=== PATIENT | female | born 1950 | race Caucasian/White ===

== ENCOUNTER → 2016-11-11 | Outpatient (CLI) | payer OTHER ==
[~2016-11-11] MED LIST: ASPEC81 PO; ASPI81TA28 PO; ATOR-24 PO; B-COCAP2 PO; CARV3.122 PO; CHOL1TAB42 PO; CHOLTAB3 PO; CRG3125 PO; LEVO1TAB34 PO; LPT40 PO; LSN5 PO; OMEGCAP2 PO; PLAVIX75 PO; PLV75 PO
== END | disposition home or self-care (01) ==
LOC: C.LABSPEC 14:42
PROVIDERS: ATTEND Family Medicine
DX: Z12.11 Encounter for screening for malignant neoplasm of colon (principal)

== ENCOUNTER → 2016-12-04 | Outpatient (CLI) | payer OTHER ==
[2016-12-04 09:44] LABS: BASO % 0.6 %; BASO ABS # 0.03 K/uL (0-0.2); COMPLETE YES; EOS % 2.7 %; HEMATOCRIT 39.9 % (37-47); LYMPH % 28.5 %; LYMPH ABS # 1.39 K/uL (1.2-3.4); MEAN CELL VOLUME 90.9 fL (80-100); MEAN CORPUSCULAR HEMOGLOBIN 30.3 pg (25-34); MEAN CORPUSCULAR HGB CONC 33.3 g/dl (32-36); MEAN PLATELET VOLUME 9.7 fL (7.4-10.4); MONO % 7.6 %; NEUT % 60.6 %; PLATELET COUNT 194 K/uL (130-400); RED BLOOD COUNT 4.39 M/uL (4.2-5.4); WHITE BLOOD COUNT 4.87 K/uL (4.8-10.8)
[2016-12-04 09:58] LABS: ALT/SGPT 32 U/L (12-78); AST/SGOT 15 U/L (15-37); BLOOD UREA NITROGEN 18 mg/dl (7-18); BUN/CREATININE RATIO 22.5 (10-20); CALCIUM 8.6 mg/dl (8.5-10.1); CARBON DIOXIDE 27 mmol/L (21-32); CHLORIDE 107 mmol/L (98-107); CHOLESTEROL 147 mg/dl (0-200); GLUCOSE 92 mg/dl (70-99); POTASSIUM 3.8 mmol/L (3.5-5.1); SODIUM 142 mmol/L (136-145)
[2016-12-04 10:09] LABS: ALB/GLOB RATIO 1.2 (0.9-2); ALKALINE PHOSPHATASE 50 U/L (45-117); CHOLESTEROL/HDL RATIO 1.7; HDL CHOLESTEROL 85 mg/dl; LDL CHOLESTEROL CALCULATED 53 mg/dl; TRIGLYCERIDES 47 mg/dl (0-150); VERY LOW DENSITY LIPOPROT CALC 9 mg/dl
== END | disposition home or self-care (01) ==
LOC: C.LAB1850 08:23
PROVIDERS: ATTEND Family Medicine
DX: E78.00 Pure hypercholesterolemia, unspecified (principal); E55.9 Vitamin D deficiency, unspecified; I25.10 Atherosclerotic heart disease of native coronary artery without angina pectoris; G37.9 Demyelinating disease of central nervous system, unspecified

== ENCOUNTER → 2016-12-18 | Outpatient (CLI) | payer OTHER ==
--- NOTE | 2016-12-18 12:39 | MAMMOGRAPHY REPORT ---
BILATERAL DIGITAL SCREENING MAMMOGRAM WITH CAD: 12/18/2016 TECHNIQUE: Current study was also evaluated with a Computer Aided Detection (CAD) system. Bilatera l CC and MLO views were obtained. COMPARISON: Comparison is made to exams dated: 03/16/2014 mammogram, 03/12/2012 mammogram - [facility], and 07/04/2009. BREAST COMPOSITION: There are scattered areas of fibroglandular density in both breasts. FINDINGS: No suspicious masses, calcifications, or areas of architectural distortion are noted in e ither breast. There has been no significant interval change compared to prior exams. IMPRESSION: ACR BI-RADS CATEGORY 1: NEGATIVE There is no mammographic evidence of malignancy. A 1 year screening mammogram is recommended. The p atient will receive written notification of the results. Approximately 10% of breast cancers are not detected with mammography. A negative mammographic repor t should not delay biopsy if a clinically suggestive mass is present. Keya Schaefer M.D. ah/:12/18/2016 11:34:58 Loss Mitigation Specialist: Lavonne SMART(Inderjit)(Davide), [facility] letter sent: Normal 1/2 BI-RADS Code: ACR BI-RADS Category 1: Negative
== END | disposition home or self-care (01) ==
LOC: C.MAMM 11:20
PROVIDERS: ATTEND Obstetrics & Gynecology
DX: Z12.31 Encounter for screening mammogram for malignant neoplasm of breast (principal)

== ENCOUNTER 2017-01-08 15:10 | Observation (INO) | payer OTHER ==
[~2017-01-08] VITALS: Ht 165.1 cm; Wt 47.2 kg
[~2017-01-08 15:10] MED LIST changes: -ASPI81TA28 PO; -ATOR-24 PO; -CARV3.122 PO; -CHOL1TAB42 PO; -LEVO1TAB34 PO; -PLAVIX75 PO
[2017-01-08] MEDS ORDERED: ASPIRIN 324 MG CHEW PO STA (15:23)
--- NOTE | 2017-01-08 15:44 | DIAGNOSTIC IMAGING REPORT ---
CHEST ONE VIEW PORTABLE CLINICAL HISTORY: Dizziness. Chest pain. Tachycardia. COMPARISON STUDY: Chest radiograph May 09, 2016. FINDINGS: There is mild bilateral mid and lower lung airspace opacity. Cardiac size is normal. Mediastinal contours are normal. There is no evidence of pulmonary edema. The right heart border is slightly obscured. IMPRESSION: Mild bibasilar opacities with obscuration of the right heart border. The findings favor an infectious process. Radiographic follow-up to ensure resolution is recommended. Electronically signed by: Mustapha Rincon M.D. 01/08/2017 3:42 PM Dictated Date/Time: 01/08/2017 3:39 PM
[2017-01-08 16:09] LABS: BASO % 0.3 %; BASO ABS # 0.02 K/uL (0-0.2); COMPLETE YES; EOS % 0.4 %; HEMATOCRIT 36.3 % (37-47); IG% 0.1 %; LYMPH % 16.3 %; MEAN CELL VOLUME 88.5 fL (80-100); MEAN CORPUSCULAR HEMOGLOBIN 30.5 pg (25-34); MEAN CORPUSCULAR HGB CONC 34.4 g/dl (32-36); MEAN PLATELET VOLUME 9.4 fL (7.4-10.4); MONO % 10.6 %; NEUT % 72.3 %; PLATELET COUNT 174 K/uL (130-400); WHITE BLOOD COUNT 7.38 K/uL (4.8-10.8)
[2017-01-08 16:19] LABS: PROTHROMBIN TIME (PATIENT) 10.7 SECONDS (9.0-12.0)
[2017-01-08 16:30] LABS: BUN/CREATININE RATIO 22.2 (10-20); CALCIUM 9.1 mg/dl (8.5-10.1); CREATININE 0.82 mg/dl (0.60-1.20); POTASSIUM 4.1 mmol/L (3.5-5.1)
[2017-01-08] MEDS ORDERED: CARV3.122 PO (16:42)
[2017-01-08] MEDS ORDERED: ATOR-24 PO (16:42)
[2017-01-08] MEDS ORDERED: ASPI81TA28 PO (16:42)
[2017-01-08] MEDS ORDERED: PLAVIX75 PO (16:42)
[2017-01-08] MEDS ORDERED: CHOL1TAB42 PO (16:42)
[2017-01-08] MEDS ORDERED: LEVAQUIN 750MG / 150ML D5W IV STA (16:49)
[2017-01-08] MEDS ORDERED: SODIUM CHLORIDE 0.9% 500ML 500 ML IV STA (18:52)
[2017-01-08] MEDS ORDERED: NITROGLYCERIN 0.4 MG SL PER TAB CHARGE SL PRN (19:00)
[2017-01-08] MEDS ORDERED: ACETAMINOPHEN 325 MG TAB PO PRN (19:00)
[2017-01-08] MEDS ORDERED: ONDANSETRON INJ 2 MG/ML 2 ML VIAL IV PRN (19:00)
--- NOTE | 2017-01-08 19:09 | History and Physical ---
History & Physical Date & Time of Service: Jan 08, 2017 at 18:59 Chief Complaint: Dizzy, Chest Pain, Tachycardia Primary Care Physician: Cinda Rivera DO History of Present Illness Source: patient, family, hospital records This patient is a pleasant 66-year-old female that presents emergency department with complaints of right-sided chest discomfort that started last night prior to bed. The patient was able to sleep through the night. She woke up this morning feeling dizzy and that her heart was racing. She sat down on the couch for a few hours with no improvement. She took her vitals at home. Her pulse was greater than 100. She reports her systolic blood pressure being in the 90s, which is unusual for her. This lasted for much all day in addition to the right sided chest discomfort. She describes it as a squeezing sensation. It is worse with deep inspiration. She denies any actual shortness of breath. She has had a nonproductive cough, but this has been chronic for many months. She denies any sick contacts. No fever or chills. She denies any other associated symptoms such as sore throat or runny nose. The patient does have a significant cardiac history. She had a STEMI in April 2016 and underwent 1 stent placement in the RCA. She was told that she had other stenosis that is being treated medically. Past Medical/Surgical History Coronary artery disease status post STEMI in April 2016 Drug-eluting stent to the RCA April 2016 History of pneumonia in the past No reported surgeries Family History FHx: heart disease Mother-CVA and A. 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 that has ALS) Immunizations History of Influenza Vaccine: Yes History of Tetanus Vaccine?: Yes History of Pneumococcal: Yes History of Hepatitis B Vaccine: No Multi-Drug Resistant Organisms History of MDRO: No Allergies Coded Allergies: No Known Allergies (Unverified , 01/08/17) Home Medications Scheduled Aspirin (Aspirin Ec), 81 MG PO HS Atorvastatin (Lipitor), 40 MG PO HS Carvedilol (Coreg), 3.125 MG PO BID Cholecalciferol (Vitamin D), 5,000 UNITS PO HS Clopidogrel Bisulfate (Plavix), 1 TAB PO HS Review of Systems 10 system review performed and negative unless noted in HPI or below Physical Exam Vital Signs Date Time Temp Pulse Resp B/P Pulse Ox O2 Delivery O2 Flow Rate FiO2 01/08/17 17:11 94 18 142/78 96 Room Air 01/08/17 16:03 96 Room Air 01/08/17 16:03 94 18 129/81 97 Room Air 01/08/17 15:53 96 Room Air 01/08/17 15:32 81 01/08/17 15:15 37.2 81 18 144/83 96 Room Air General Appearance: no apparent distress Head: normocephalic Eyes: EOMI ENT: + pertinent finding (oral mucosa moist. No exudate noted.) Neck: no adenopathy, no JVD Respiratory/Chest: lungs clear Cardiovascular: regular rate, rhythm Abdomen/GI: normal bowel sounds, non tender, soft Extremities/Musculoskelatal: no calf tenderness, no pedal edema Neurologic/Psych: no motor/sensory deficits, oriented x 3 Skin: warm/dry Diagnostics Laboratory Results Results Past 24 Hours Test 01/08/17 15:55 01/08/17 15:56 Range/Units White Blood Count 7.38 4.8-10.8 K/uL Red Blood Count 4.10 4.2-5.4 M/uL Hemoglobin 12.5 12.0-16.0 g/dL Hematocrit 36.3 37-47 % Mean Corpuscular Volume 88.5 80-100 fL Mean Corpuscular Hemoglobin 30.5 25-34 pg Mean Corpuscular Hemoglobin Concent 34.4 32-36 g/dl Platelet Count 174 130-400 K/uL Mean Platelet Volume 9.4 7.4-10.4 fL Neutrophils (%) (Auto) 72.3 % Lymphocytes (%) (Auto) 16.3 % Monocytes (%) (Auto) 10.6 % Eosinophils (%) (Auto) 0.4 % Basophils (%) (Auto) 0.3 % Neutrophils # (Auto) 5.34 1.4-6.5 K/uL Lymphocytes # (Auto) 1.20 1.2-3.4 K/uL Monocytes # (Auto) 0.78 0.11-0.59 K/uL Eosinophils # (Auto) 0.03 0-0.5 K/uL Basophils # (Auto) 0.02 0-0.2 K/uL RDW Standard Deviation 41.9 36.4-46.3 fL RDW Coefficient of Variation 13.0 11.5-14.5 % Immature Granulocyte % (Auto) 0.1 % Immature Granulocyte # (Auto) 0.01 0.00-0.02 K/uL Prothrombin Time 10.7 9.0-12.0 SECONDS Prothromb Time International Ratio 1.0 0.9-1.1 Activated Partial Thromboplast Time 26.9 21.0-31.0 SECONDS Partial Thromboplastin Ratio 1.0 Sodium Level 141 136-145 mmol/L Potassium Level 4.1 3.5-5.1 mmol/L Chloride Level 107 98-107 mmol/L Carbon Dioxide Level 28 21-32 mmol/L Anion Gap 6.0 3-11 mmol/L Blood Urea Nitrogen 18 7-18 mg/dl Creatinine 0.82 0.60-1.20 mg/dl Est Creatinine Clear Calc Drug Dose 44.1 ml/min Estimated GFR () 85.2 Estimated GFR (Non- 73.5 BUN/Creatinine Ratio 22.2 10-20 Random Glucose 108 70-99 mg/dl Calcium Level 9.1 8.5-10.1 mg/dl Bedside Troponin I 0.000 0-0.045 ng/ml Microbiology Results 01/08/17 Blood Culture, Received Pending 01/08/17 Blood Culture, Received Pending Diagnostic Radiology Patient: JOSE GUADALUPE MARIE Address1: [address] [place] [address] Rec: [id number] Address2: Acct ID: [id number] [facility] Zip: [place] [address] Date: 1950 Sex: F Room/Bed: Ref Phy: Cinda Rivera DO SC: SHANEL Att Phy: Report #: [id number] Irena Phy: Cinda Rivera DO Test: CXR1P Admit Phy: Courier: TWILA Interpreting Phy: Mustapha Rincon MD Diagnosis: DIZZY, CHEST PAIN, TACHYCARDIA Ordering Phy: William Krause MD Service Date: 01/08/17 Admit Date: 01/08/17 MNE: [id number] CONF: DICTATED BY: Mustapha Rincon MD]] CC: William Krause M.D. Cinda Rivera DO Endcc: [~ rep ct add3]] CHEST ONE VIEW PORTABLE CLINICAL HISTORY: Dizziness. Chest pain. Tachycardia. COMPARISON STUDY: Chest radiograph May 09, 2016. FINDINGS: There is mild bilateral mid and lower lung airspace opacity. Cardiac size is normal. Mediastinal contours are normal. There is no evidence of pulmonary edema. The right heart border is slightly obscured. IMPRESSION: Mild bibasilar opacities with obscuration of the right heart border. The findings favor an infectious process. Radiographic follow-up to ensure resolution is recommended. Electronically signed by: Mustapha Rincon M.D. 01/08/2017 3:42 PM Dictated Date/Time: 01/08/2017 3:39 PM The status of this report is Signed. Draft = Not yet reviewed or approved by Radiologist. Signed = Reviewed and approved by Radiologist. <AttendingPhy></AttendingPhy> <FamilyPhy>Cinda Rivera DO</FamilyPhy> < PrimaryPhy>Cinda Rivera DO</PrimaryPhy> <UnitNumber>[id number]</UnitNumber > <VisitNumber>[id number]</VisitNumber> <PatientName>JOSE GUADALUPE MARIE</PatientName > <DateOfBirth>1950</DateOfBirth> <Location>[facility]</Location> <ServiceDate> 01/08/17</ServiceDate> <MNE>ESINDI</MNE> <OrderingPhy>William Krause MD</ OrderingPhy> <OrderingPhyMNE>f rep ord dr mayo</OrderingPhyMNE> <DictatingPhyMNE> f rep dict dr mayo</DictatingPhyMNE> <CCListMNE>f rep ct gael</CCListMNE> < AdmittingPhyMNE>f pt admit dr mayo</AdmittingPhyMNE> <AttendingPhyMNE>f pt attend dr mayo</AttendingPhyMNE> <ConsultingPhyMNE>f pt consult dr mayo</ConsultingPhyMNE> <FamilyPhyMNE>f pt fam dr mayo</FamilyPhyMNE> <OtherPhyMNE>f pt other dr mayo</OtherPhyMNE> < PrimaryPhyMNE>f pt prim care dr mayo</PrimaryPhyMNE> <ReferringPhyMNE>f pt referring dr mayo</ReferringPhyMNE> EKG Normal sinus rhythm with a rate of 88 bpm Incomplete right bundle branch block noted, which appears new T-wave inversions improved in the inferior leads Impression Assessment and Plan 66-year-old female presents emergency department with right-sided chest pressure , associated dizziness and subjective tachycardia. Significant history of coronary artery disease chest pain, dizziness-It sounds like the patient may have had a run of A. fib socially given her cardiac history. She also has a family history of A. fib. -observe in telemetry -follow cardiac enzymes every 8 hr x 2 -daily EKG -EKG with worsening pain -Check echo -Cardiology consult -NPO after midnight -continue medical management with ASA, Plavix, statin and beta [place] Questionable bibasilar infiltrates on chest [id number] picture is not consistent with an infectious process. She is afebrile. There is no leukocytosis. -CT of the chest for better evaluation -Hold off on antibiotics for now DVT prophylaxis -Teds, SCDs line-consider adding chemical means of anticoagulation if the patient is not discharged tomorrow CODE STATUS -LEVEL I FULL CODE Level of Care Telemetry Resuscitation Status FULL RESUSCITATION VTE Prophylaxis VTE Risk Assessment Done? Y/N: Yes Risk Level: Moderate Given or contraindicated: T.E.D. Stockings, SCD's Reviewed: Pt Seen/Exam by Me History Physician Media Services Coordinator Supervision Note: I interviewed and examined the patient. Discussed with CORY Sánchez and agree with findings and plan as documented in the note. Any exceptions or clarifications are listed here: Patient is a 66-year-old female who presents to the ER after having substernal chest tightness that started the night prior to admission but then moved over to the right midaxillary line and became more pleuritic in nature by the morning. She had persistent tachycardia and checked her pulse at home both with her blood pressure cuff and her home pulse oximeter and it was persistently at 105 for several hours. It was regular. She does have a history of SVT into the 140s noted during cardiac rehabilitation. She had lightheadedness associated with this and reports her blood pressure at one point was 85/45 at home. The right-sided chest pain is now resolved since being in the ER. She is not hypoxic. She received 1 dose of IV Levaquin in the ER, as well as IV fluids. She does report a mostly nonproductive cough she thinks for over a year. Every few weeks she'll cough up a dime-sized amount of white sputum. No fevers or chills at home. Her chest x-ray here was suggestive of possible bibasilar infiltrates. Her ECG and initial troponin were negative for ischemia. Since admission, her CT angiogram of the chest showed no pulmonary embolism, however it does confirm multifocal pneumonia of an atypical nature given her lack of significant symptoms. Vitals reviewed, persistently mildly tachycardic Anxious, NAD, AAO 3 Mild tachycardia, regular rhythm, no murmurs gallops or rubs Positive crackles left base, otherwise fairly clear throughout Abdomen soft nontender nondistended positive bowel sounds Extremities no edema, 2+ dorsalis pedis pulses Skin no rashes 66-year-old female with a history of CAD status post drug-eluting stent in April 2016, here with substernal chest tightness that and migrated to the right side of the chest became pleuritic in nature with nonproductive cough 1 year, found to have multifocal pneumonia on CT scan. Also with mild sinus tachycardia and hypotension at home. Pulmonary embolism ruled out. Her symptoms were similar to what brought her in for her IN last year. She will be admitted to rule out acute coronary syndrome and repeat her echocardiogram. She may need repeat stress test if her troponins are elevated or she has ECG changes. -Continue Levaquin, suspect atypical pneumonia-Will consult pulmonology for further expertise -Continue all other home cardiac meds including dual antiplatelet therapy -SCDs for DVT prophylaxis, however stays longer than 24 hours, would add on Lovenox or heparin subcutaneously -Patient is quite anxious to get home to take care of her who has ALS Documented By: Janneth Lewis
[2017-01-08] MEDS ORDERED: CLOPIDOGREL BISULFATE 75 MG TAB PO SCH (21:00)
[2017-01-08] MEDS ORDERED: ATORVASTATIN 20 MG TAB PO SCH (21:00)
[2017-01-08] MEDS ORDERED: ASPIRIN 81 MG ECTAB PO SCH (21:00)
[2017-01-08] MEDS ORDERED: OPTIRAY 320 IV PRN (21:15)
--- NOTE | 2017-01-08 21:20 | DIAGNOSTIC IMAGING REPORT ---
CHEST CTA for PULMONARY ARTERIES CT DOSE: 423.20 mGy.cm HISTORY: Chest pain dyspnea TECHNIQUE: Multiaxial CT images of the chest were performed following the intravenous administration of contrast to evaluate the pulmonary arteries. Maximal intensity projection images were also obtained. COMPARISON STUDY: None. FINDINGS: There is a normal caliber thoracic aorta with no evidence for dissection. There is no evidence for pulmonary embolus. No pleural effusions. No pneumothorax. The liver and spleen are unremarkable. Evaluation of the lung parenchyma demonstrates consolidative infiltrative changes anterior aspect of the right middle lobe and to lesser extent lingula. Patchy parenchymal infiltrative changes seen in the peripheral aspect of the right lower lobe as well as peripheral aspect of the left upper lobe. Minimal infiltrative changes seen over the superior segments of lower lobes bilaterally. Several small reactive nodes bilaterally. IMPRESSION: 1. Study is negative for pulmonary embolus. 2. Scattered parenchymal infiltrative changes with consolidative infiltrates involving the anterior aspects of the right middle lobe as well as lingula Electronically signed by: Wil Schafer M.D. 01/08/2017 9:18 PM Dictated Date/Time: 01/08/2017 9:15 PM
[2017-01-08 21:30] VITALS: BP 174/96; PULSE 101; TEMP 37.4; O2SAT 96; Ht 165.1 cm; Wt 47.2 kg
[2017-01-08] MEDS ORDERED: IV FLUIDS COMPLETED PRN (21:45)
[2017-01-08] MEDS: CARVEDILOL 3.125 MG TAB PO SCH (22:37)
--- NOTE | 2017-01-08 22:46 | EMERGENCY ROOM VISIT NOTE ---
History Report prepared by Karla: Yan Hernández Under the Supervision of: Dr. William Krause M.D. First contact with patient: 15:13 Chief Complaint: CHEST PAIN Stated Complaint: DIZZY, CHEST PAIN, TACHYCARDIA History of Present Illness The patient is a 66 year old female who presents to the Emergency Room with complaints of right sided chest pain starting last night. She describes it to be a tightness in her chest which is more noticeable on the right side. When she woke up this morning, she felt lightheaded. Her blood pressure about 6 hours ago was 95/43. She also felt her heart racing this morning. She currently feels dehydrated. She currently denies any pain or chest tightness. She intermittently has the chest tightness with deep breathing. She took a baby aspirin prior to arrival. She denies any recent illnesses. She reports a persistent cough for the past few days. She denies fever, shortness of breath, vomiting, diarrhea, pain/swelling in lower extremities, or any other complaints. She had a myocardial infarction in April 2016. At the time, she also had lightheadedness and a low blood pressure. Source of History: patient Onset: last night Position: chest (right) Symptom Intensity: No pain or tightness currently Quality: other (tightness) Modifying Factors (Relieving): other (baby aspirin) Associated Symptoms: + cough, No SOB, No diarrhea, No fevers, No vomiting Review of Systems See HPI for pertinent positives & negatives. A total of 10 systems reviewed and were otherwise negative. Past Medical & Surgical Medical Problems: (1) Chest pain (2) Hyperlipemia (3) STEMI (ST elevation myocardial infarction) Family History FHx: heart disease Social History Smoking Status: Never Smoker Drug Use: none Marital Status: Housing Status: lives with family Occupation Status: retired Current/Historical Medications Scheduled Aspirin (Aspirin Ec), 81 MG PO HS Atorvastatin (Lipitor), 40 MG PO HS Carvedilol (Coreg), 3.125 MG PO BID Cholecalciferol (Vitamin D), 5,000 UNITS PO HS Clopidogrel Bisulfate (Plavix), 1 TAB PO HS Allergies Coded Allergies: No Known Allergies (Unverified , 01/08/17) Physical Exam Vital Signs Date Time Temp Pulse Resp B/P Pulse Ox O2 Delivery O2 Flow Rate FiO2 01/08/17 17:11 94 18 142/78 96 Room Air 01/08/17 16:03 96 Room Air 01/08/17 16:03 94 18 129/81 97 Room Air 01/08/17 15:53 96 Room Air 01/08/17 15:32 81 01/08/17 15:15 37.2 81 18 144/83 96 Room Air Physical Exam Constitutional: Vital signs reviewed. Eyes: Pupils are equal round reactive to light. Conjunctiva are noninjected. ENT: Pharynx is clear without erythema or exudate. Mucous membranes are moist. Neck supple without meningeal signs. Respiratory: Clear to auscultation bilaterally. Breath sounds are equal bilaterally. Cardiovascular: Regular rate and rhythm. No rubs or gallops. GI: Soft, nondistended and nontender. Bowel sounds are present. Musculoskeletal: No peripheral edema. No lower extremity tenderness. Integumentary: No cyanosis. Neurological: The patient is awake and alert. No focal deficits. Psychiatric: Normal affect. Medical Decision & Procedures ER Provider Diagnostic Interpretation: X-ray results as stated below per interpretation by me and the radiologist: CHEST ONE VIEW PORTABLE CLINICAL HISTORY: Dizziness. Chest pain. Tachycardia. COMPARISON STUDY: Chest radiograph May 09, 2016. FINDINGS: There is mild bilateral mid and lower lung airspace opacity. Cardiac size is normal. Mediastinal contours are normal. There is no evidence of pulmonary edema. The right heart border is slightly obscured. IMPRESSION: Mild bibasilar opacities with obscuration of the right heart border. The findings favor an infectious process. Radiographic follow-up to ensure resolution is recommended. Electronically signed by: Mustapha Rnicon M.D. 01/08/2017 3:42 PM Dictated Date/Time: 01/08/2017 3:39 PM Laboratory Results 01/08/17 15:55 Red Blood Count 4.10, Mean Corpuscular Volume 88.5, Mean Corpuscular Hemoglobin 30.5, Mean Corpuscular Hemoglobin Concent 34.4, Mean Platelet Volume 9.4, Neutrophils (%) (Auto) 72.3, Lymphocytes (%) (Auto) 16.3, Monocytes (%) (Auto) 10.6, Eosinophils (%) (Auto) 0.4, Basophils (%) (Auto) 0.3, Neutrophils # (Auto ) 5.34, Lymphocytes # (Auto) 1.20, Monocytes # (Auto) 0.78, Eosinophils # (Auto ) 0.03, Basophils # (Auto) 0.02 01/08/17 15:55 Test 01/08/17 15:55 01/08/17 15:56 White Blood Count 7.38 K/uL (4.8-10.8) Red Blood Count 4.10 M/uL (4.2-5.4) Hemoglobin 12.5 g/dL (12.0-16.0) Hematocrit 36.3 % (37-47) Mean Corpuscular Volume 88.5 fL (80-100) Mean Corpuscular Hemoglobin 30.5 pg (25-34) Mean Corpuscular Hemoglobin Concent 34.4 g/dl (32-36) Platelet Count 174 K/uL (130-400) Mean Platelet Volume 9.4 fL (7.4-10.4) Neutrophils (%) (Auto) 72.3 % Lymphocytes (%) (Auto) 16.3 % Monocytes (%) (Auto) 10.6 % Eosinophils (%) (Auto) 0.4 % Basophils (%) (Auto) 0.3 % Neutrophils # (Auto) 5.34 K/uL (1.4-6.5) Lymphocytes # (Auto) 1.20 K/uL (1.2-3.4) Monocytes # (Auto) 0.78 K/uL (0.11-0.59) Eosinophils # (Auto) 0.03 K/uL (0-0.5) Basophils # (Auto) 0.02 K/uL (0-0.2) RDW Standard Deviation 41.9 fL (36.4-46.3) RDW Coefficient of Variation 13.0 % (11.5-14.5) Immature Granulocyte % (Auto) 0.1 % Immature Granulocyte # (Auto) 0.01 K/uL (0.00-0.02) Prothrombin Time 10.7 SECONDS (9.0-12.0) Prothromb Time International Ratio 1.0 (0.9-1.1) Activated Partial Thromboplast Time 26.9 SECONDS (21.0-31.0) Partial Thromboplastin Ratio 1.0 Anion Gap 6.0 mmol/L (3-11) Est Creatinine Clear Calc Drug Dose 44.1 ml/min Estimated GFR () 85.2 Estimated GFR (Non- 73.5 BUN/Creatinine Ratio 22.2 (10-20) Calcium Level 9.1 mg/dl (8.5-10.1) Bedside Troponin I 0.000 ng/ml (0-0.045) Laboratory results as reviewed by me. Medications Administered Medications (Trade) Dose Ordered Sig/Sudha Route Start Time Stop Time Status Last Admin Dose Admin Aspirin (Aspirin Chew) 324 mg NOW STAT PO 01/08/17 15:23 01/08/17 15:24 DC 01/08/17 15:58 324 MG Levofloxacin 750 mg 750 mg NOW STAT IV 01/08/17 16:49 01/08/17 16:50 DC 01/08/17 17:19 750 MG Sodium Chloride (Nss 500ml) 500 ml @ 999 mls/hr Q31M STAT IV 01/08/17 18:52 01/08/17 19:22 DC 01/08/17 18:52 999 MLS/HR ECG Indication: chest pain Rate (beats per minute): 88 Rhythm: normal sinus Findings: RBBB (incomplete), no ectopy ED Course 1513: The patient was evaluated in room A02. A complete history and physical exam was performed. 1523: Aspirin 324 mg PO 1636: I reevaluated the patient who denies any chest pain. She reports that she has had a mild cough recently but denies any fevers. She notes that Avelox works best for her. I discussed her test results. She will be evaluated for further management and care. 1647: I [facility] the [facility] She requested to start the patient on Levaquin. 1649: Levofloxacin 750 mg IV Medical Decision This is a 66-year-old female who presents with chest pain. Differential diagnosis includes unstable angina, KS, pneumonia, pleurisy, GERD. I did perform a limited focused review of portions of the patient's old chart on the electronic medical record. The patient was admitted in April 2016 for myocardial infarction and had a stent placed. I did evaluate the patient as noted above. The patient is presenting with intermittent chest tightness. She states that she was hypotensive and tachycardic at home similar to when she had her previous acute coronary syndrome. She has had a mild cough. She denies any fever. IV access was established. The patient was placed on a continuous monitor and storage bin tender. I did order and personally review the patient's 12-lead EKG and chest x-ray as described above. She does appear to have a infiltrate at the right side. I did order and review the patient's blood work as noted in the electronic medical record. Troponin is 0. I did order blood cultures. I did treat the patient with Levaquin IV. I did discuss the test results with the patient. Given her symptoms being very similar to when she had her previous stent I did recommend hospitalization for repeat cardiac enzymes. I did discuss case with the hospitalist and case fitter. Consults Time Called: [phone] Consulting Physician: [facility] Returned Call: [phone] I discussed the patient's [facility] She requested to start the patient on Levaquin. Impression Primary Impression: Precordial chest pain Additional Impression: Pneumonia involving right lung Scribe Attestation The scribe's documentation has been prepared under my direct and personally reviewed by me in its entirety. I confirm that the note above accurately reflects all work, treatment, procedures, and medical decision making performed by me. Departure Information Dispostion Being Evaluated By Hospitalist Referrals Cinda Rivera DO (PCP) Patient Instructions My [facility] Problem Qualifiers Additional Impression: Pneumonia involving right lung Pneumonia type: due to unspecified organism
[2017-01-08 23:48] VITALS: BP 146/81; PULSE 95; TEMP 37.3; O2SAT 98
[2017-01-09] VITALS (7 sets, daily range): BP systolic 108–114; BP diastolic 71–72; PULSE 78–105; TEMP 37.1–37.4; O2SAT 95–98
[2017-01-09 01:59] LABS: CKMB/CK RATIO 1.2 (0-3.0)
[2017-01-09 09:09] LABS: BASO % 0.5 %; BASO ABS # 0.03 K/uL (0-0.2); COMPLETE YES; EOS % 0.6 %; HEMATOCRIT 36.6 % (37-47); LYMPH % 20.7 %; LYMPH ABS # 1.33 K/uL (1.2-3.4); MEAN CELL VOLUME 88.4 fL (80-100); MEAN CORPUSCULAR HEMOGLOBIN 30.7 pg (25-34); MEAN CORPUSCULAR HGB CONC 34.7 g/dl (32-36); MEAN PLATELET VOLUME 9.4 fL (7.4-10.4); MONO % 13.1 %; NEUT % 65.1 %; PLATELET COUNT 172 K/uL (130-400); RED BLOOD COUNT 4.14 M/uL (4.2-5.4); WHITE BLOOD COUNT 6.42 K/uL (4.8-10.8)
[2017-01-09] MEDS: CARVEDILOL 3.125 MG TAB PO SCH (09:23)
[2017-01-09 09:35] LABS: CALCIUM 8.9 mg/dl (8.5-10.1); CREATININE 0.76 mg/dl (0.60-1.20); POTASSIUM 3.9 mmol/L (3.5-5.1)
[2017-01-09 09:36] LABS: CKMB/CK RATIO 1.2 (0-3.0)
--- NOTE | 2017-01-09 10:13 | CARDIOLOGY CONSULTATION ---
DATE OF CONSULTATION: 01/09/2017 DATE OF CONSULTATION: 01/09/2017. REFERRING PHYSICIAN: Janneth Lewis. HISTORY OF PRESENT ILLNESS: Mrs. Rena Walden is a 66-year-old woman with a known history of coronary artery disease having suffered an acute myocardial infarction in April 2016. The patient states that approximately 2 days ago she began to experience symptoms of right-sided chest discomfort. This discomfort involved the right lateral port of her chest wall, was worse with deep inspiration and certain movements of the arm. The patient monitored these symptoms for 1 day but they became somewhat more severe over that period of time. Did not appear to be associated with substernal chest discomfort and she reports these symptoms being distinct from those experienced during myocardial infarction last summer. At the time of her myocardial infarction her symptoms are more substernal in nature, involved a pressure sensation with radiation to the left arm. She has not had similar symptoms recently. She has also been fairly active around the house and ascending stairs without chest discomfort. 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 She did perform cardiac rehab periodically and did not have inducible symptoms of chest discomfort or significant shortness of breath with exercise at that time. She denies significant breathing difficulty. She has not had any associated breathing difficulty over the past 2 days. She denies orthopnea or paroxysmal nocturnal dyspnea. Currently her chest pain is resolved. There did not appear in any specific intervention which relieved her symptoms. This appeared to resolve on its own once she reached the hospital. The patient was concerned yesterday because she felt like her heart rate was somewhat elevated. She also had some symptoms of dizziness and lightheadedness associated with blood pressures that were measured to be low at home. The patient has had episodes of rapid heartbeats in the past. She feels that perhaps every other week she will have a day with a rapid heartbeat. Her symptoms during these episodes vary from mild fatigue to dizziness. She has not suffered a syncopal episode. The episodes themselves have been very similar over the past 10 years and have not necessarily changed in character. The episode themselves generally resolved spontaneously without any particular intervention. At the time of this interview, the patient claims to be feeling well. She is not currently dizzy. She has not noticed any racing heartbeats at this time. PAST MEDICAL HISTORY: 1. Significant for the aforementioned myocardial infarction in April 2016. The patient had occlusion of the right coronary artery and underwent percutaneous intervention of this vessel. She was also noted to have some residual disease which was nonobstructive in the mid LAD, a compromised diagonal branch as well as a codominant distal left complex branch. Also appeared to be some residual disease in the distal right coronary artery, not amenable to intervention. 2. Preserved left ventricular systolic function. 3. Possible history of multiple sclerosis. 4. Hypercholesterolemia. 5. Osteoporosis. 6. Migraine headaches. 7. Aforementioned SVT. PAST SURGICAL HISTORY: Includes oral surgery. FAMILY HISTORY: Noncontributory. No history of premature coronary disease. 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 She is a lifelong nonsmoker and denies significant alcohol abuse. REVIEW OF SYSTEMS: Complete 10 system review of systems was performed and the pertinent positives noted in the history of present illness. The patient does have a nonproductive cough which is fairly chronic in nature, appears to predate her myocardial infarction and not change significantly after discontinuation of her WADE inhibitor. She denies any change in her eating habits. No nausea, no vomiting, no change in her bowel habits. She has not noticed any swelling in her lower extremities. She has not had any recent constitutional symptoms such as fevers or chills. PHYSICAL EXAMINATION: GENERAL: The patient does not appear in acute distress. She is a pleasant individual who is alert and oriented. Mood and affect appeared normal. She answered all questions appropriately. VITAL SIGNS: Include blood pressure of 108/71 with pulse of 78. HEAD, EYES, EARS, NOSE, AND THROAT: Her sclerae are anicteric. Pupils equal, reactive to light and accommodation. Extraocular movements were intact. NECK: Palpation of submandibular region did not reveal any significant lymphadenopathy. The carotids are palpable bilaterally. There are no bruits on auscultation. I cannot appreciate any jugular venous distention. Thyroid is not enlarged. LUNGS: Auscultation of both lung dwyer reveal them to be clear. I do not appreciate rales, wheezes or rhonchi. There is no expiratory wheezing. She had normal respiratory effort without use of accessory muscles. CARDIAC EXAMINATION: Revealed her to be in a regular rhythm with normal S1, normal S2. I do not appreciate any murmurs on exam. PMI was not markedly displaced on palpation. ABDOMEN: Soft, nontender. EXTREMITIES: Evaluation both wrists revealed radial pulses that were equal in intensity. There is no evidence of cyanosis or clubbing. Evaluation of her lower extremities did not reveal any significant peripheral edema. I did not appreciate any rashes on exam today. LABORATORY STUDIES: Included a white cell count of 7.3, hemoglobin was 12.5, platelet count was 174. Sodium is 141, potassium is 4.1, BUN was 18, creatinine was 0.82. Serial cardiac troponins were drawn and they were less than detectable limit. A CT scan was performed after chest x-ray in the Emergency Room which suggested the presence of some parenchymal infiltrates. A 12-lead EKG was also obtained which revealed the patient to be in a sinus rhythm without notable ischemic changes. I reviewed the patient's telemetry which also reveals what appears to be a sinus rhythm and sinus tachycardia. ASSESSMENT AND PLAN: 1. Atypical chest pain. The patient's symptoms are right sided in nature and pleuritic. They were extended in duration without elevation in cardiac biomarkers. These are also distinct from those symptoms experienced during her myocardial infarction. As such, I will call this noncardiac and not recommend any additional coronary evaluation at this time. She was noted to have residual disease in branch vessels but has no symptoms of angina currently even with activity. In the presence of preserved left ventricular systolic function, will continue medical therapy. 2. Tachycardia. The patient's EKG suggest only a sinus tachycardia. Review of her telemetry suggests some abrupt changes in rate, but no obvious change in T-wave morphology. This may be a very slow atrial arrhythmia. Review of her outpatient record does suggest more rapid SVT at times. During cardiac rehab she had a tracing which is consistent with and SVT, the mechanism of which is unclear. There is a suggestion that this was an atrial tachycardia as well but the rate was much higher. I think at this point she can continue on her current dose of beta austin and we can discuss additional options for treatment on an outpatient basis up to and including catheter based therapy. 3. Coronary artery disease. The patient is on a good regimen for secondary prevention to include atorvastatin and dual antiplatelet therapy. The patient is on beta blockade subsequent to her myocardial infarction and had been on WADE inhibitor. This was discontinued due to symptoms of hypotension.
--- NOTE | 2017-01-09 11:55 | ECHOCARDIOGRAM REPORT ---
*NOTICE TO RECEIVING [employer] This information is strictly Confidential and protected under [place] law. [place] law prohibits you from making any further disclosure of this information unless further disclosure is expressly permitted by the written consent of the person to whom it pertains or is authorized by law. A general authorization for the release of medical or other information is not sufficient for this purpose. Hospital accepts no responsibility if the information is made available to any other person, INCLUDING THE PATIENT. Interpretation Summary * Name: JOSE GUADALUPE MARIE Study Date: 01/09/2017 07:18 AM BP: 108/71 mmHg * Patient Location: C.2T\S\S240\S\2 HR: 96 * : 1950 (M/d/yyyy) Gender: Female Height: 64 in * Age: 66 yrs Ethnicity: CA Weight: 107 lb * Ordering Physician: Ratna Sánchez * Referring Physician: Self, Referred * Performed By: Susan Shaw RCS * * Reason For Study: CHEST PAIN * BSA: 1.5 m2 * -- Conclusions -- * There is mild asymmetric left ventricular hypertrophy. * Left ventricular systolic function is normal. * There is mild mitral regurgitation. * Right ventricular systolic pressure is normal. * Small, localized pericardial effusion without echo evidence of tamponade. * Overall unchanged (including effusion) when compared directly to an echocardiogram from 04/2016 Procedure Details * A complete two-dimensional transthoracic echocardiogram was performed (2D, M-mode, Doppler and color flow Doppler). Left Ventricle * The left ventricle is normal in size. * There is mild asymmetric left ventricular hypertrophy. * Ejection Fraction = 50-55%. * Left ventricular systolic function is normal. * There are regional wall motion abnormalities as specified. * Basal inferior akinesis with anuerysmal changes Right Ventricle * The right ventricle is grossly normal size. * The right ventricular systolic function is normal. Atria * The left atrial size is normal. * Right atrial size is normal. Mitral Valve * The mitral valve leaflets appear thickened, but open well. * There is mild mitral regurgitation. Tricuspid Valve * The tricuspid valve is not well visualized, but is grossly normal. * There is mild tricuspid regurgitation. * Right ventricular systolic pressure is normal. Aortic Valve * The aortic valve is normal in structure and function. * Calcified non-coronary cusp * No hemodynamically significant valvular aortic stenosis. * Trace aortic regurgitation. Great Vessels * The aortic root is normal size. Pericardium/Pleural * Small, localized pericardial effusion without echo evidence of tamponade. Great Vessels * Normal inferior vena cava size and collapsability with sniff indicates a normal right atrial pressure of 3 mmHg MMode 2D Measurements and Calculations IVSd 1.4 cm IVSs 1.4 cm LVIDd 3.4 cm LVIDs 2.5 cm LVPWd 1.1 cm LVPWs 1.4 cm IVS/LVPW 1.3 FS 25.9 % EDV(Teich) 47.5 ml ESV(Teich) 22.8 ml EF(Teich) 52.0 % EDV(cubed) 39.4 ml ESV(cubed) 16.1 ml EF(cubed) 59.2 % % IVS thick -4.99 % % LVPW thick 23.5 % LV mass(C)d 144.0 grams LV mass(C)dI 96.0 grams/m\S\2 LV mass(C)s 109.2 grams LV mass(C)sI 72.8 grams/m\S\2 SV(Teich) 24.7 ml SI(Teich) 16.5 ml/m\S\2 SV(cubed) 23.3 ml SI(cubed) 15.6 ml/m\S\2 Ao root diam 3.6 cm Ao root area 10.0 cm\S\2 ACS 1.5 cm LA dimension 3.0 cm LA/Ao 0.83 LVOT diam 1.8 cm LVOT area 2.5 cm\S\2 LVAd ap4 21.3 cm\S\2 LVLd ap4 6.5 cm EDV(MOD-sp4) 56.6 ml EDV(sp4-el) 58.8 ml LVAs ap4 11.1 cm\S\2 LVLs ap4 5.1 cm ESV(MOD-sp4) 23.7 ml ESV(sp4-el) 20.6 ml EF(MOD-sp4) 58.0 % EF(sp4-el) 64.9 % SV(MOD-sp4) 32.8 ml SI(MOD-sp4) 21.9 ml/m\S\2 SV(sp4-el) 38.2 ml SI(sp4-el) 25.5 ml/m\S\2 Doppler Measurements and Calculations MV E max masood 64.5 cm/sec MV A max masood 57.2 cm/sec MV E/A 1.1 MV P1/2t max masood 81.4 cm/sec MV P1/2t 74.2 msec MVA(P1/2t) 3.0 cm\S\2 MV dec slope 321.4 cm/sec\S\2 MV dec time 0.29 sec Ao V2 max 130.3 cm/sec Ao max PG 6.8 mmHg Ao max PG (full) 2.4 mmHg MICHAEL(V,A) 2.0 cm\S\2 MICHAEL(V,D) 2.0 cm\S\2 LV V1 max PG 4.4 mmHg LV V1 max 104.8 cm/sec PA V2 max 86.9 cm/sec PA max PG 3.0 mmHg TR max masood 206.8 cm/sec
--- NOTE | 2017-01-09 12:08 | PULMONARY CONSULTATION ---
DATE OF CONSULTATION: 01/09/2017 TIME: 10:35 a.m. REPORT OF CONSULTATION: The patient was seen in room 240, bed 2. She is a pleasant 66-year-old female who came to the Emergency Room because she was worried about having some chest pain. She noticed some squeezing of her chest and some discomfort on the right side. This began on the night of January 07. The pain she says was relatively mild. During the day on the , she noticed that her heart rates were higher than normal. She apparently has a blood pressure cuff and pulse oximeter and her heart rates were about 105, whereas they normally are about 80. Because of these concerns, she presented to the Emergency Room. She underwent an evaluation. Thus far, no cardiac problems have been found. However, she did have a CAT scan of the chest done. The CAT scan was done to rule out pulmonary embolic disease. There was no evidence of PE. However, she had multiple areas of infiltrates. These were mainly in the right middle lobe and the lingula. The infiltrates are patchy. There is at least 3 or 4 areas affected. She states she does not feel like she has pneumonia. She does have a chronic cough. This began approximately 9 months ago. It occurs daily. It is dry. She does not bring up any phlegm. Her cough at present does not seem any different than her usual. It just so happens that she had been on Zegerid for several years and she stopped it in the spring of 2015. Thus, the possibility exists that her chronic cough could be related to reflux. This had not occurred to her over the past many months. She indicated she has not actually spoken with her doctor about this cough either. She did have pneumonia diagnosed in 2006 and again in 2008 and both times she was treated as an outpatient. The patient has never smoked. She was never told of asthma, tuberculosis, emphysema, COPD or pleurisy. She is not short of breath. Her oxygen saturations have been normal. She is not noticing any heartburn or reflux symptoms, but she states that is the way it was previously. The patient has had no hemoptysis. She does not have a headache. She is not complaining of myalgias or arthralgias. She does complain of having some cramps in her legs bilaterally. This has been in the calf area. She denies having any vomiting. PAST SURGICAL HISTORY: 1. Left knee meniscus surgery. 2. Stent to the right coronary artery in 2016. PAST MEDICAL HISTORY: 1. Coronary artery disease with CA in April 2016. 2. SVT which had been discovered at cardiac rehab. 3. 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 The vocal cord paralysis ultimately resolved over the course of several months. FAMILY HISTORY: Mother age 83, CVA and she had atrial fib. Father age 88 with an CA. ALLERGIES: No known allergies. 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 MEDICATIONS: At home: 1. Aspirin 81 mg daily. 2. Lipitor 40 mg daily. 3. Coreg 3.125 mg b.i.d. 4. Vitamin D. 5. Plavix daily. REVIEW OF SYSTEMS: Negative except for the above-mentioned complaints. Ten systems reviewed. PHYSICAL EXAMINATION: GENERAL: The patient is a 66-year-old female who was cooperative, alert and oriented. She was in no distress. VITAL SIGNS: Current temperature is 37.1. Her maximum temperature has been 37.4. HEENT: Eye exam suggests cataract formation bilaterally. Nares were clear. Mouth exam was normal. NECK: Palpation of the neck reveals no lymph nodes or masses. CHEST: Normal expansion and development. HEART: Heart rate was 78 per minute. The rhythm is regular. Blood pressure 108/71. LUNGS: Lung dwyer were clear bilaterally. No wheezes, rales or rhonchi were heard. Oxygen saturation was 97%. ABDOMEN: Soft. Bowel sounds were normal. There was no tenderness to palpation, masses or organomegaly. EXTREMITIES: Showed no cyanosis, clubbing or edema. In addition to the CAT scan of the chest, the patient's chest x-ray showed a small infiltrate in the right lower lung field medially. This is probably actually in the right middle lobe, based upon CAT scan findings. CBC shows a white count of 6.42. Hemoglobin is 12.7. Platelets 172,000. Coags are normal. Electrolytes show sodium 141, potassium 3.9, chloride 109, bicarb 26. BUN is 18 with a creatinine of 0.76. Blood sugar was 102. CPK was normal. Troponin was negative x3. IMPRESSIONS: 1. Bilateral pneumonia -- community acquired. 2. Chronic cough, possibly secondary to #3. 3. Gastroesophageal reflux disease. COMMENTS AND RECOMMENDATIONS: The patient clinically seems to be stable from a pulmonary perspective. She does have patchy bilateral pneumonia. This could represent viral pneumonia versus atypical or even bacterial pneumonia. I think that is the least likely. She has responded in the past to Avelox. She is now on Levaquin, which would be very similar. I believe the Levaquin could be changed to oral. From a pulmonary perspective, she could be discharged when desired. She should have 7 days of Levaquin. A followup x-ray should be done for completeness. I would suggest that the patient be started on omeprazole as a trial to see if her cough resolves. I will order a mycoplasma titer and Legionella antigen for completeness. Her blood cultures are still pending. I would be surprised if they are positive. Thank you for asking me to assist in her care.
[2017-01-09] MEDS ORDERED: LEVO1TAB34 PO (15:53)
--- NOTE | 2017-01-09 15:54 | Discharge Instructions ---
Discharge Instructions Admission Admission Date: Jan 08, 2017 at 18:58 Admission Diagnosis: Chest Pain. Discharge Care Plan - Problem: Medical Problems: (1) Pneumonia involving right lung (2) Precordial chest pain Care Plan - Goal(s): Improve function Care Plan - Instructions: Activity Recommendations: no limitations Recommended Home Diet: Regular VTE Core Measure Inpt VTE Proph given/why not?: Rocky Giron, SCD's Laboratory Results Test Results: Lipid Panel Test 12/04/16 08:36 Range/Units Triglycerides Level 47 0-150 mg/dl Cholesterol Level 147 0-200 mg/dl HDL Cholesterol 85 mg/dl Cholesterol/HDL Ratio 1.7 LDL Cholesterol, Calculated 53 mg/dl Howie Euceda Recommendations: Call your doctor if: * Temperature above 101 degrees * Pain not relieved by pain medicine ordered * There is increased drainage or redness from any incision * You have any unanswered questions or concerns. Your Doctors Instructions noted above were prepared by provider Shereen Wright.
[2017-01-09] MEDS ORDERED: LEVOFLOXACIN / D5W 750 MG in PREMIXED IN D5W 150 ML IV SCH (18:00)
--- NOTE | 2017-01-09 20:21 | Discharge Summary ---
Discharge Summary Date of Service Jan 09, 2017. Discharge Summary Admission Date: Jan 08, 2017 at 18:58 Discharge Date: Jan 09, 2017 Discharge Disposition: Home Principal Diagnosis: Bilateral pneumonia -- community acquired. Problems/Secondary Diagnoses: Bilateral pneumonia -- community acquired. Sinus tachycardia PR in April 2016. The patient had occlusion of the RCA S/P stent Preserved left ventricular systolic function. Possible history of multiple sclerosis. Hypercholesterolemia. Osteoporosis. Migraine headaches. Aforementioned SVT. Immunizations: Have You Had Influenza Vaccine: Yes History of Tetanus Vaccine?: Yes History of Pneumococcal: Yes History of Hepatitis B Vaccine: No Medication Reconciliation New Medications: Levofloxacin (Levaquin) 500 Mg Tab 1 TAB PO DAILY for 7 Days, #7 TAB Continued Medications: Aspirin (Aspirin Ec) 81 Mg Tab 81 MG PO HS Atorvastatin (Lipitor) 40 Mg Tab 40 MG PO HS, TAB Carvedilol (Coreg) 3.125 Mg Tab 3.125 MG PO BID, TAB PT STATES "RARELY TAKE AM DOSE". Cholecalciferol (Vitamin D) 5,000 Unit Tab 5000 UNITS PO HS Clopidogrel Bisulfate (Plavix) 75 Mg Tab 1 TAB PO HS for 90 Days, TAB 3 Refills Referrals At Discharge Follow up Referrals: [facility] Referral - Within 1-2 Weeks with Huber Doran, DO Discharge Exam Review of Systems: Constitutional: No chills, No fatigue, No fever, No problem reported, No sweats, No weakness, No weight loss Eyes: No diplopia, No discharge, No eye pain, No problem reported, No redness, No worsening of vision ENT: No dental problems, No hearing loss, No nasal symptoms, No problem reported, No sore throat, No tinnitus, No trouble swallowing, No unusual epistaxis Respiratory: + cough, No dyspnea at rest, No dyspnea on exertion, No hemoptysis, No problem reported, No shortness of breath, No sputum, No wheezing Cardiovascular: No PND, No chest pain, No claudication, No edema, No orthopnea, No palpitations, No problem reported Abdomen: No GI bleeding, No constipation, No diarrhea, No nausea, No pain, No problem reported, No vomiting Musculoskeletal: No calf pain, No joint pain, No muscle pain, No problem reported, No swelling Genitourinary - Female: No dysmenorrhea, No dysuria, No hematuria, No menorrhagia, No metrorrhagia, No , No problem reported, No rash, No urinary frequency, No urinary incontinence, No urinary retention, No urinary urgency, No vaginal bleeding, No vaginal discharge, No vaginal itching, No vulvodynia Neurologic: No balance problems, No memory loss, No numbness/tingling, No paralysis, No problem reported, No vertigo, No weakness Psychiatric: No anhedonism, No anxiety, No depression symptoms, No insomnia , No problem reported, No substance abuse Endocrine: No excessive thirst, No excessive urination, No fatigue, No problem reported Hematologic / Lymphatic: No abnormal bleeding/bruising, No clotting problems , No night sweats, No problem reported, No swollen lymph nodes Integumentary: No bleeding, No color change, No itch, No new/changing skin lesions, No problem reported, No rash Physical Exam: General Appearance: no apparent distress Eyes: normal inspection, PERRL ENT: normal ENT inspection, hearing grossly normal, TMs normal Neck: supple Respiratory/Chest: chest non-tender, lungs clear, normal breath sounds, no respiratory distress Cardiovascular: regular rate, rhythm, no edema, no gallop, no JVD, no murmur , normal peripheral pulses Abdomen / GI: normal bowel sounds, non tender, soft, no organomegaly, no pulsatile mass, normal rectal exam, occult blood negative Extremities: normal inspection, no calf tenderness, normal capillary refill , no pedal edema, normal range of motion Neurologic/Psychiatric: merchandise planning manager II-XII nml as tested, no motor/sensory deficits , alert, normal mood/affect, normal reflexes, oriented x 3 Skin: normal color, warm/dry, no rash Hospital Course 66 years old female was sent to ED as her PCP noticed tachycardia low hundreds. work up in ED revealed multi lobar pneumonia that appeared atypical as she complained of prolonged dry cough. seen by charge attendant, who cleared her for discharge as her pain appeared atypical. recommended out patient follow up and possible Holter. currently she was kept on B [place]. Seen by pharmaceutical officer , Dr. Doran who recommended 10 days course of levofloxacin LABORATORY STUDIES: Included a white cell count of 7.3, hemoglobin was 12.5, platelet count was 174. Sodium is 141, potassium is 4.1, BUN was 18, creatinine was 0.82. Serial cardiac troponins were drawn and they were less than detectable limit. She was discharged on 10 days course of levofloxacin instructed to follow up with pharmaceutical officer in 4 weeks for follow up CXR Total Time Spent: Greater than 30 minutes This includes examination of the patient, discharge planning, medication reconciliation, and communication with other providers. Discharge Instructions Please refer to the electronic Patient Visit Report (Discharge Instructions) for additional information.
[2017-01-13 11:34] LABS: LEGIONELLA ANTIGEN NOT DETECTED (NOT DETECTED)
== END 2017-01-09 16:41 | disposition home or self-care (01) ==
LOC: ENRESERVDT → ENRESERVTM → C.EDB 15:12 → EEVIPCON 18:58 → C.2T 18:58 → C.MED 01-09 12:36
PROVIDERS: ADMIT Family Medicine; ATTEND Internal Medicine
DX: J18.9 Pneumonia, unspecified organism (principal); R00.0 Tachycardia, unspecified; E78.00 Pure hypercholesterolemia, unspecified; K21.9 Gastro-esophageal reflux disease without esophagitis; M81.0 Age-related osteoporosis without current pathological fracture; I25.10 Atherosclerotic heart disease of native coronary artery without angina pectoris; I25.2 Old myocardial infarction; Z79.82 Long term (current) use of aspirin; Z87.01 Personal history of pneumonia (recurrent); Z82.3 Family history of stroke; Z82.49 Family history of ischemic heart disease and other diseases of the circulatory system

== ENCOUNTER → 2017-03-04 | Outpatient (CLI) | payer OTHER ==
[~2017-03-04] MED LIST changes: -ASPEC81 PO; +ASPI81TA28 PO; +ATOR-24 PO; -B-COCAP2 PO; +CARV3.122 PO; +CHOL1TAB42 PO; -CHOLTAB3 PO; -CRG3125 PO; -LPT40 PO; -LSN5 PO; -OMEGCAP2 PO; +PLAVIX75 PO; -PLV75 PO
--- NOTE | 2017-03-04 14:33 | DIAGNOSTIC IMAGING REPORT ---
CT SCAN OF THE CHEST WITHOUT IV CONTRAST CLINICAL HISTORY: Follow-up pneumonia. COMPARISON STUDY: Chest CT scans dated 01/08/2017 and 02/23/2009. TECHNIQUE: CT scan of the thorax was performed from the thoracic inlet to the upper abdomen. Images are reviewed in the axial, sagittal, and coronal planes. IV contrast was not administered for this examination as per the referring clinician. CT DOSE: 228.37 mGy.cm FINDINGS: Thyroid: Imaged portions of the thyroid gland are normal in size and heterogeneous in attenuation. Thoracic aorta: There is mild atherosclerotic calcification of the thoracic aorta, which is normal in caliber and demonstrates standard 3-vessel arch anatomy. Heart: The heart is normal in size and there is trace pericardial effusion. The coronary arteries are densely calcified. Lungs and pleural spaces: There is biapical scarring. There is fibrotic change and mild bronchiectasis seen within the right middle lobe and lingula. Foci of nodular consolidative change are also seen at the right lung base as well as in the lingula. Numerous foci of tree-in-bud nodularity are present within the lower lobes. Foci of mucus pudding are seen within the lower lungs. Scattered calcified granulomas are observed. Subpleural reticulation is seen bilaterally. An accessory fissure is incidentally noted in the right lower lobe. The trachea and central airways are clear. Mediastinum: There are numerous mildly enlarged mediastinal lymph nodes. Precarinal nodes seen on images #129 and #137 measure up to 1.0 cm in short axis. Jennifer: Not well assessed without IV contrast. Axillae: There is no axillary lymphadenopathy. Upper abdomen: Partially visualized upper abdominal viscera is within normal limits. Skeletal structures: The skeletal structures are osteopenic. No lytic or blastic bony lesions are seen. IMPRESSION: 1. There are numerous foci of tree-in-bud nodularity seen throughout both lungs, as well as foci of nodular consolidative change and foci of scarring and bronchiectasis within the right middle lobe and lingula. Although these findings appear somewhat improved from 01/08/2017 overall, there are new foci of nodular consolidative change present as well. Similar findings were also seen on examinations dating back to 2008. The appearance is most typical for a chronic infectious/inflammatory process such as atypical mycobacterium. Clinical correlation will be required. A precautionary 3-6 month follow-up chest CT is recommended for reassessment. 2. There is no pleural effusion. 3. Mildly enlarged mediastinal lymph nodes are nonspecific an avulsive been present over multiple prior studies. Electronically signed by: Horacio Real M.D. 03/04/2017 2:32 PM Dictated Date/Time: 03/04/2017 1:55 PM
== END | disposition home or self-care (01) ==
LOC: C.CTS 13:43
PROVIDERS: ATTEND Internal Medicine Pulmonary Disease
DX: R91.8 Other nonspecific abnormal finding of lung field (principal)

== ENCOUNTER → 2017-09-29 | Outpatient (CLI) | payer OTHER ==
[~2017-09-29] MED LIST changes: +LEVO1TAB35 PO; +TPRSR/25 PO
--- NOTE | 2017-09-29 12:38 | DIAGNOSTIC IMAGING REPORT ---
CHEST 2 VIEWS ROUTINE HISTORY: Cough. COMPARISON: Chest 01/08/2017. FINDINGS: The heart is normal in size. The lungs remain hyperexpanded. No pleural effusions. No pneumothorax. Patchy airspace opacities within the right middle lobe and lingula this is massively change compared the prior studies. IMPRESSION: No significant change in the patchy airspace opacities within the right middle lobe and lingula. This favors a chronic pneumonitis and may represent mycobacterium avium intracellulare. Electronically signed by: Osmin Cevallos M.D. 09/29/2017 12:36 PM Dictated Date/Time: 09/29/2017 12:05 PM
== END | disposition home or self-care (01) ==
LOC: C.RAD1850 11:35
PROVIDERS: ATTEND Nurse Practitioner Family
DX: R05 Cough (principal)

== ENCOUNTER 2017-10-01 09:25 | Emergency (ER) | payer OTHER ==
[~2017-10-01] VITALS: Ht 162.6 cm; Wt 50.5 kg
[~2017-10-01 09:25] MED LIST changes: -LEVO1TAB35 PO; -TPRSR/25 PO
[2017-10-01 09:29] VITALS: Ht 162.6 cm; Wt 50.5 kg
[2017-10-01] MEDS ORDERED: OPTIRAY 320 IV PRN (10:00)
[2017-10-01] MEDS ORDERED: TPRSR/25 PO (10:05)
--- NOTE | 2017-10-01 10:12 | DIAGNOSTIC IMAGING REPORT ---
CHEST ONE VIEW PORTABLE HISTORY: Right-sided chest pain. Cough. COMPARISON: Chest 09/29/2017. FINDINGS: Slight progression of the patchy airspace opacities within the periphery the right mid to lower lung zone and within the base of the left lower lobe. No pneumothorax. No pleural fusions. The heart is normal in size. The right midlung zone density IMPRESSION: Slight progression of the right mid to lower lung zone and left lung base patchy airspace opacities. This suggests an acute on chronic pneumonitis. Electronically signed by: Osmin Cevallos M.D. 10/01/2017 10:11 AM Dictated Date/Time: 10/01/2017 10:09 AM
[2017-10-01 10:35] LABS: BASO % 0.1 %; BASO ABS # 0.01 K/uL (0-0.2); COMPLETE YES; IG% 0.3 %; LYMPH % 7.2 %; LYMPH ABS # 0.65 K/uL (1.2-3.4); MEAN CELL VOLUME 91.1 fL (80-100); MEAN CORPUSCULAR HEMOGLOBIN 31.3 pg (25-34); MEAN CORPUSCULAR HGB CONC 34.4 g/dl (32-36); MONO % 6.6 %; NEUT % 85.8 %; PLATELET COUNT 174 K/uL (130-400); RED BLOOD COUNT 4.28 M/uL (4.2-5.4); WHITE BLOOD COUNT 8.98 K/uL (4.8-10.8)
[2017-10-01 10:59] LABS: ALT/SGPT 53 U/L (12-78); BLOOD UREA NITROGEN 12 mg/dl (7-18); BUN/CREATININE RATIO 15.6 (10-20); CALCIUM 8.7 mg/dl (8.5-10.1); CARBON DIOXIDE 25 mmol/L (21-32); CHLORIDE 103 mmol/L (98-107); CREATININE 0.75 mg/dl (0.60-1.20); GLUCOSE 157 mg/dl (70-99); POTASSIUM 3.6 mmol/L (3.5-5.1); SODIUM 136 mmol/L (136-145)
[2017-10-01 11:04] LABS: ALKALINE PHOSPHATASE 121 U/L (45-117); AST/SGOT 24 U/L (15-37)
[2017-10-01] MEDS ORDERED: ONDANSETRON INJ 2 MG/ML 2 ML VIAL IV STA (11:18)
[2017-10-01] MEDS ORDERED: SODIUM CHLORIDE 0.9% 1000ML 1,000 ML IV STA (11:18)
--- NOTE | 2017-10-01 11:41 | DIAGNOSTIC IMAGING REPORT ---
CT ANGIOGRAM OF THE CHEST CLINICAL HISTORY: Right-sided pleuritic chest pain COMPARISON STUDY: Noncontrast chest CT dated 03/04/2017 , chest x-ray dated 10/01/2017 TECHNIQUE: Following the IV administration of 94 mL of Optiray-320, CT angiogram of the thorax was performed from the thoracic inlet to the lung bases utilizing the pulmonary embolus protocol. Images are reviewed in the axial, sagittal, and coronal planes. IV contrast was administered without complication. MIP imaging was performed. A dose lowering technique was utilized adhering to the principles of ALARA. CT DOSE: 257.88 mGycm FINDINGS: There is mild mediastinal lymphadenopathy. An index 3 tracheal lymph node measures 15 mm in short axis. There is a precarinal lymph node measuring 15 mm. There was no evidence of thoracic aortic dilatation. There were no pulmonary artery filling defects to indicate acute pulmonary embolism. No pleural effusions are visualized. There are persistent tree-in-bud opacities with thin the right upper lobe. There is persistent lingular bronchiectasis with associated airspace opacities. There is a progressive right middle lobe airspace opacity. There are new ill-defined moderately extensive nodular right lower lobe airspace opacities suspicious for acute pneumonia. IMPRESSION: 1. Persistent mediastinal lymphadenopathy 2. New ill-defined moderately extensive nodular right lower lobe airspace opacity suspicious for acute pneumonia. This is superimposed on chronic parenchymal abnormalities. In addition there is progressive consolidative changes within the right middle lobe. 3. Follow-up imaging subsequent to antibiotic therapy is recommended. Electronically signed by: Jony Benton M.D. 10/01/2017 11:40 AM Dictated Date/Time: 10/01/2017 11:33 AM
[2017-10-01] MEDS ORDERED: ACETAMINOPHEN 325 MG TAB ONE (11:44)
[2017-10-01] MEDS ORDERED: NURSING VERBAL MED ORDER ONE (11:45)
[2017-10-01] MEDS ORDERED: LEVO1TAB35 PO (12:06)
[2017-10-01] MEDS ORDERED: LEVOFLOXACIN 250 MG TAB PO ONE (12:15)
[2017-10-01 12:48] VITALS: BP 143/68; PULSE 96; TEMP 37.6; O2SAT 95
--- NOTE | 2017-10-01 16:02 | EMERGENCY ROOM VISIT NOTE ---
History Report prepared by Karla: William Bailey Under the Supervision of: Dr. Ralf Mena D.O. First contact with patient: 09:35 Chief Complaint: COUGH Stated Complaint: COUGH, TIGHTNESS UNDER RIBS RT SIDE,VERTIGO, REFE Nursing Triage Summary: patient c/o dry harsh cough since friday morning. patient went to PCP and had xray on friday. x -ray negative. patient c/o worsening cough and fever 101.4 yesterday and pain during deep inspiration. today patient states she had low grade fever. no tylenol or motrin. History of Present Illness The patient is a 67 year old female who presents to the Emergency Room with complaints of a worsening dry cough for 2 days. Patient adds that she has tightness on the lateral side of her right chest. She had a chest x-ray done by her PCP on the which showed chronic infiltrate with questionable microbacteria. PCP referred her to the ED this morning. Per patient, symptoms are improved with pressure on side of her chest and exacerbated when taking deep breaths. She states she felt nauseous 8 hours ago causing her to vomit. Patient adds that pain with deep breaths began at 3:30pm yesterday. She also states that her right knee began shaking violently 1 day ago. She denies sore throat, or runny nose. Pertinent medical history includes pleurisy, pneumonia "multiple times", and a cardiac stent. Patient denies any blood clots. Pt denies headache, change in vision, fever over 104, chest pain, shortness of breath, diarrhea, pain with urination, and melena. Patient has no history of COPD. She still has gallbladder and appendix. Patient has had no recent travels outside of country or contact with someone in the [facility]. Source of History: patient Onset: 2 days ago Quality: other (dry cough) Timing: worsening Modifying Factors (Worsening): breathing (deep) Modifying Factors (Relieving): other (Pressure on right side of chest) Associated Symptoms: + nausea, + vomiting, No fevers, No sorethroat, No back pain, No melena, No diarrhea, No urinary symptoms Review of Systems See HPI for pertinent positives & negatives. A total of 10 systems reviewed and were otherwise negative. Past Medical & Surgical Medical Problems: (1) Chest pain (2) Hyperlipemia (3) STEMI (ST elevation myocardial infarction) Family History FHx: heart disease Social History Smoking Status: Never Smoker Drug Use: none Marital Status: Housing Status: lives with family Occupation Status: retired Current/Historical Medications Scheduled Aspirin (Aspirin Ec), 81 MG PO HS Atorvastatin (Lipitor), 40 MG PO HS Cholecalciferol (Vitamin D), 5,000 UNITS PO HS Levofloxacin (Levaquin), 750 MG PO QD@08 Metoprolol Succinate (Metoprolol Succinate ER), 25 MG PO DAILY Allergies Coded Allergies: No Known Allergies (Unverified , 01/08/17) Physical Exam Vital Signs Date Time Temp Pulse Resp B/P (MAP) Pulse Ox O2 Delivery O2 Flow Rate FiO2 10/01/17 12:48 37.6 96 20 143/68 95 10/01/17 11:37 37.6 96 20 143/68 95 Room Air 10/01/17 10:06 37.0 109 20 149/85 96 Room Air 10/01/17 09:29 37.0 109 22 140/73 96 Room Air Physical Exam GENERAL: Sitting up in bed, alert, well appearing, well nourished, no distress, non-toxic EYE EXAM: normal conjunctiva. PERRL and EOM's intact. OROPHARYNX: no exudate, no erythema, lips, buccal mucosa, and tongue normal and mucous membranes are moist NECK: supple, no nuchal rigidity, no adenopathy, non-tender LUNGS: Clear to auscultation. Normal chest wall mechanics HEART: no murmurs, S1 normal and S2 normal ABDOMEN: abdomen soft, non-tender, normo-active bowel sounds, no masses, no rebound or guarding. BACK: Back is symmetrical on inspection and there is no deformity, no midline tenderness, no CVA tenderness. SKIN: no rashes and no bruising UPPER EXTREMITIES: Radial pulses are equal bilaterally. Upper extremities are grossly normal. LOWER EXTREMITIES: Calves equal bilaterally. No pitting edema. NEURO EXAM: Normal sensorium, cranial nerves II-XII intact, normal speech, no gross weakness of arms, no gross weakness of legs. Medical Decision & Procedures ER Provider Diagnostic Interpretation: Radiology results as stated below per my review and the radiologist's interpretation: CHEST ONE VIEW PORTABLE HISTORY: Right-sided chest pain. Cough. COMPARISON: Chest 09/29/2017. FINDINGS: Slight progression of the patchy airspace opacities within the periphery the right mid to lower lung zone and within the base of the left lower lobe. No pneumothorax. No pleural fusions. The heart is normal in size. The right midlung zone density IMPRESSION: Slight progression of the right mid to lower lung zone and left lung base patchy airspace opacities. This suggests an acute on chronic pneumonitis. Electronically signed by: Osmin Cevallos M.D. 10/01/2017 10:[address] ANGIOGRAM OF THE CHEST CLINICAL HISTORY: Right-sided pleuritic chest pain COMPARISON STUDY: Noncontrast chest CT dated 03/04/2017 , chest x-ray dated 10/01/2017 TECHNIQUE: Following the IV administration of 94 mL of Optiray-320, CT angiogram of the thorax was performed from the thoracic inlet to the lung bases utilizing the pulmonary embolus protocol. Images are reviewed in the axial, sagittal, and coronal planes. IV contrast was administered without complication. MIP imaging was performed. A dose lowering technique was utilized adhering to the principles of ALARA. CT DOSE: 257.88 mGycm FINDINGS: There is mild mediastinal lymphadenopathy. An index 3 tracheal lymph node measures 15 mm in short axis. There is a precarinal lymph node measuring 15 mm. There was no evidence of thoracic aortic dilatation. There were no pulmonary artery filling defects to indicate acute pulmonary embolism. No pleural effusions are visualized. There are persistent tree-in-bud opacities with thin the right upper lobe. There is persistent lingular bronchiectasis with associated airspace opacities. There is a progressive right middle lobe airspace opacity. There are new ill-defined moderately extensive nodular right lower lobe airspace opacities suspicious for acute pneumonia. IMPRESSION: 1. Persistent mediastinal lymphadenopathy 2. New ill-defined moderately extensive nodular right lower lobe airspace opacity suspicious for acute pneumonia. This is superimposed on chronic parenchymal abnormalities. In addition there is progressive consolidative changes within the right middle lobe. 3. Follow-up imaging subsequent to antibiotic therapy is recommended. Electronically signed by: Jony Benton M.D. 10/01/2017 11:40 AM Laboratory Results 10/01/17 10:20 Red Blood Count 4.28, Mean Corpuscular Volume 91.1, Mean Corpuscular Hemoglobin 31.3, Mean Corpuscular Hemoglobin Concent 34.4, Mean Platelet Volume 10.0, Neutrophils (%) (Auto) 85.8, Lymphocytes (%) (Auto) 7.2, Monocytes (%) (Auto) 6.6, Eosinophils (%) (Auto) 0.0, Basophils (%) (Auto) 0.1, Neutrophils # (Auto) 7.70, Lymphocytes # (Auto) 0.65, Monocytes # (Auto) 0.59, Eosinophils # (Auto) 0.00, Basophils # (Auto) 0.01 10/01/17 10:20 Test 10/01/17 10:20 White Blood Count 8.98 K/uL (4.8-10.8) Red Blood Count 4.28 M/uL (4.2-5.4) Hemoglobin 13.4 g/dL (12.0-16.0) Hematocrit 39.0 % (37-47) Mean Corpuscular Volume 91.1 fL (80-100) Mean Corpuscular Hemoglobin 31.3 pg (25-34) Mean Corpuscular Hemoglobin Concent 34.4 g/dl (32-36) Platelet Count 174 K/uL (130-400) Mean Platelet Volume 10.0 fL (7.4-10.4) Neutrophils (%) (Auto) 85.8 % Lymphocytes (%) (Auto) 7.2 % Monocytes (%) (Auto) 6.6 % Eosinophils (%) (Auto) 0.0 % Basophils (%) (Auto) 0.1 % Neutrophils # (Auto) 7.70 K/uL (1.4-6.5) Lymphocytes # (Auto) 0.65 K/uL (1.2-3.4) Monocytes # (Auto) 0.59 K/uL (0.11-0.59) Eosinophils # (Auto) 0.00 K/uL (0-0.5) Basophils # (Auto) 0.01 K/uL (0-0.2) RDW Standard Deviation 43.6 fL (36.4-46.3) RDW Coefficient of Variation 13.2 % (11.5-14.5) Immature Granulocyte % (Auto) 0.3 % Immature Granulocyte # (Auto) 0.03 K/uL (0.00-0.02) D-Dimer 780 ug/L FEU (0-500) Anion Gap 8.0 mmol/L (3-11) Est Creatinine Clear Calc Drug Dose 56.4 ml/min Estimated GFR () 94.3 Estimated GFR (Non- 81.3 BUN/Creatinine Ratio 15.6 (10-20) Calcium Level 8.7 mg/dl (8.5-10.1) Total Bilirubin 0.9 mg/dl (0.2-1) Direct Bilirubin 0.2 mg/dl (0-0.2) Aspartate Amino Transf (AST/SGOT) 24 U/L (15-37) Alanine Aminotransferase (ALT/SGPT) 53 U/L (12-78) Alkaline Phosphatase 121 U/L (45-117) Troponin I < 0.015 ng/ml (0-0.045) Total Protein 6.8 gm/dl (6.4-8.2) Albumin 3.4 gm/dl (3.4-5.0) Lipase 106 U/L (73-393) Laboratory results per my review. Medications Administered Medications (Trade) Dose Ordered Sig/Sudha Route Start Time Stop Time Status Last Admin Dose Admin Sodium Chloride 1,000 ml @ 999 mls/hr Q1H1M STAT IV 10/01/17 11:18 10/01/17 12:18 DC 10/01/17 11:34 999 MLS/HR Ondansetron HCl (Zofran Inj) 4 mg NOW STAT IV 10/01/17 11:18 10/01/17 11:19 DC 10/01/17 11:33 4 MG Miscellaneous Information (Nursing Verbal Med Order) 1 ea ONE ONCE N/A 10/01/17 11:45 10/01/17 11:46 DC 10/01/17 11:48 1 EA Acetaminophen (Tylenol Tab) 650 mg STK-MED ONCE .ROUTE 10/01/17 11:44 10/01/17 11:45 DC 10/01/17 11:48 650 MG Levofloxacin (Levaquin Tab) 750 mg NOW ONCE PO 10/01/17 12:15 10/01/17 12:16 DC 10/01/17 12:47 750 MG ECG Indication: chest pain Rate (beats per minute): 107 Rhythm: sinus tachycardia Findings: Q waves (Inferior), other (Incomplete right bundle) ED Course ED COURSE: Vital signs were reviewed and showed tachycardiac The patients medical record was reviewed The above diagnostic studies were performed and reviewed. ED treatments and interventions as stated above. 0936: The patient was evaluated in room B7. A complete history and physical examination was performed. 1000: Optiray 320 100ml IV 1118: Zofran Inj 4mg IV, Sodium Chloride 1000 ml @ 999 mls/hr IV 1144: Tylenol Tab 650mg route, Nursing Verbal Med Order 1ea 1155: I checked up on the patient and they are resting comfortably. 1215: Levaquin Tab 750mg PO 1221: Upon reevaluation, the patient is resting comfortably.I discussed my findings with the patient and she understands and agrees with the treatment plan. Based on the patients age, coexisting illnesses, exam and lab findings the decision to treat as an outpatient was made. The patient remained stable while under my care. The patient appeared well at the time of discharge. Medical Decision Differential diagnoses includes but is not limited to acute coronary syndrome, myocardial infarction, pericarditis, pulmonary embolus, aortic dissection, pneumonia, pneumothorax, musculoskeletal, shingles, esophageal. Patient is a 67-year-old female who presents to ER for cough associated with right-sided chest pain and nausea. She was referred in for further workup. Recent chest x-ray suggests a possible pneumonia. CBC all BMP, LFTs, bilirubin lipase is unremarkable. She is not tachycardic. She is not hypoxic. Afebrile. D-dimer was elevated. CT PE was performed and shows multifocal pneumonia. Patient was updated at bedside. She was feeling significantly better following fluids and antibiotics. Patient was discharged follow-up with PCP as an outpatient. Discussed with Pt concerning signs and symptoms to watch out for. Pt was instructed to follow up with their PCP and discussed with the patient their option to return to the ED at anytime for persistent or worsening symptoms. The appropriate anticipatory guidance and out-patient management, including indications for return to the emergency department, were explained at length to the patient and understood. Medication Reconcilliation Current Medication List: was personally reviewed by me Blood Pressure Screening Patient's blood pressure: Normal blood pressure Blood pressure disposition: Did not require urgent referral Impression Primary Impression: Pneumonia Scribe Attestation The scribe's documentation has been prepared under my direction and personally reviewed by me in its entirety. I confirm that the note above accurately reflects all work, treatment, procedures, and medical decision making performed by me. Departure Information Dispostion Home / Self-Care Prescriptions Levofloxacin (Levaquin) 750 Mg Tab 750 MG PO QD@08, #9 TAB Prov: Ralf Mena, DO 10/01/17 Referrals Neville Nance III, CRNP (PCP) Forms HOME CARE DOCUMENTATION FORM, IMPORTANT VISIT INFORMATION Patient Instructions My [facility], Pneumonia (Bacterial) - [facility] Additional Instructions Please follow up with your primary care doctor with in the next 24 hours. Any worsening of your symptoms, please return to the ED immediately. This includes any fevers greater than 100.4, worsening pain, chest pain, shortness breath, persistent nausea, vomiting, unable to eat or drink, or any other concerning signs or symptoms from your standpoint. You were given medications during this visit that will inhibit your ability to drive, operate machinery and work. Please do NOT drive, operate machinery, drink alcohol or work for the next 12hrs. Problem Qualifiers Primary Impression: Pneumonia Pneumonia type: due to unspecified organism Laterality: unspecified laterality Lung location: unspecified part of lung Qualified Codes: J18.9 - Pneumonia, unspecified organism
== END 2017-10-01 12:49 | disposition home or self-care (01) ==
LOC: C.EDB 09:27
DX: J18.9 Pneumonia, unspecified organism (principal); E78.5 Hyperlipidemia, unspecified; I25.2 Old myocardial infarction; Z87.01 Personal history of pneumonia (recurrent); Z98.61 Coronary angioplasty status; Z79.82 Long term (current) use of aspirin; Z79.899 Other long term (current) drug therapy

== ENCOUNTER → 2017-10-30 | Outpatient (CLI) | payer OTHER ==
[~2017-10-30] MED LIST changes: -CARV3.122 PO; +LEVO1TAB35 PO; -PLAVIX75 PO; +TPRSR/25 PO
--- NOTE | 2017-10-30 11:41 | DIAGNOSTIC IMAGING REPORT ---
CHEST 2 VIEWS ROUTINE CLINICAL HISTORY: J18.9 [id number] pneumonitis COMPARISON STUDY: 10/01/2017 FINDINGS: Bilateral parenchymal infiltrative change slightly improved as compared to the prior exam. Persistent infiltrative change peripheral aspect right midlung. Slight accentuation of the lung markings bilaterally similar to the prior study. Improved aeration left base. IMPRESSION: Improved bilateral parenchymal infiltrative changes compared to the prior study.. 2. Moderate residual infiltrative process peripheral right base with slight persistent peribronchial prominence bilaterally The above report was generated using voice recognition software. It may contain grammatical, syntax or spelling errors. Electronically signed by: Wil Schafer M.D. 10/30/2017 11:40 AM Dictated Date/Time: 10/30/2017 11:38 AM
== END | disposition home or self-care (01) ==
LOC: C.RAD1850 11:26
PROVIDERS: ATTEND Internal Medicine Pulmonary Disease
DX: J18.9 Pneumonia, unspecified organism (principal)

== ENCOUNTER → 2018-01-08 | Outpatient (CLI) | payer OTHER ==
[2018-01-08 11:07] LABS: BASO % 0.7 %; BASO ABS # 0.03 K/uL (0-0.2); EOS % 3.8 %; EOS ABS # 0.17 K/uL (0-0.5); HEMATOCRIT 39.6 % (37-47); HEMOGLOBIN 13.3 g/dL (12.0-16.0); IG# 0.01 K/uL (0.00-0.02); LYMPH % 33.9 %; LYMPH ABS # 1.52 K/uL (1.2-3.4); MEAN CELL VOLUME 91.5 fL (80-100); MEAN CORPUSCULAR HEMOGLOBIN 30.7 pg (25-34); MEAN CORPUSCULAR HGB CONC 33.6 g/dl (32-36); MONO % 7.4 %; MONO ABS # 0.33 K/uL (0.11-0.59); NEUT ABS # 2.42 K/uL (1.4-6.5); PLATELET COUNT 210 K/uL (130-400); RED CELL DISTRIBUTION WIDTH CV 13.1 % (11.5-14.5); RED CELL DISTRIBUTION WIDTH SD 44.3 fL (36.4-46.3); WHITE BLOOD COUNT 4.48 K/uL (4.8-10.8)
[2018-01-08 11:20] LABS: ALBUMIN 3.4 gm/dl (3.4-5.0); ALT/SGPT 63 U/L (12-78); AST/SGOT 40 U/L (15-37); BLOOD UREA NITROGEN 19 mg/dl (7-18); CARBON DIOXIDE 26 mmol/L (21-32); CREATININE 0.76 mg/dl (0.60-1.20); GLUCOSE 94 mg/dl (70-99); POTASSIUM 3.9 mmol/L (3.5-5.1); SODIUM 140 mmol/L (136-145)
[2018-01-08 11:31] LABS: ALKALINE PHOSPHATASE 108 U/L (45-117); CHOLESTEROL 139 mg/dl (0-200); LDL CHOLESTEROL CALCULATED 60 mg/dl
== END | disposition home or self-care (01) ==
LOC: C.LAB1850 09:25
PROVIDERS: ATTEND Neuromusculoskeletal Medicine & OMM
DX: E55.9 Vitamin D deficiency, unspecified (principal)